=== PATIENT | female | born 1980 | race Caucasian/White ===

== ENCOUNTER 2016-10-02 03:54 | Inpatient (IN) | payer OTHER ==
--- NOTE | ~2016-10-02 | EKG ---
PATIENT: TOMASZ GRUBER UNIT #: [id number] Ventricular Rate: 93 BPM Atrial Rate: 93 BPM P-R Interval: 172 ms QRS Duration: 102 ms Q-T Interval: 378 ms QTC Calculation(Bezet): 469 ms P [place]: 33 degrees Calculated R [place]: 73 degrees Calculated T [place]: 44 degrees Diagnosis Line: Normal sinus rhythm Diagnosis Line: Minimal voltage criteria for LVH, may be normal Diagnosis Line: variant Diagnosis Line: Borderline ECG Diagnosis Line: No previous ECGs available Diagnosis Line: Confirmed by ELINA MANCINI MD ([id number]) on Diagnosis Line: 10/03/2016 12:05:28 AM INTERPRETING MD: LIVE BRISCOE
--- NOTE | ~2016-10-02 | HP ---
Unit #: [id number] #: [id number] Patient: TOMASZ GRUBER [id number] [address] [place], [place] [address] [id number] I MR#: [id number] NAME: TOMASZ GRUBER ROOM: 91244 Age: 36 Sex: F Admission Date: 10/02/2016 : 1980 Attending Physician: Adonis Albright M.D. Primary Care Physician: Damian Choe M.D. HISTORY AND PHYSICAL REASON FOR ADMISSION Drug overdose. HISTORY OF PRESENT ILLNESS The patient is a 36-year-old female who states that she has been fairly sober from any sort of IV drugs and/or alcohol for approximately two years. She recently moved back to [place] from [place]. She met her sister as well as mother who are both heroin addicts. Yesterday, she said that she snorted one line of heroin. After that, she does not recall any further events. Per report, apparently she became unconscious, continued to have normal respirations and/or pulse. EMS services were called by patient's family. The patient was brought to the hospital for further evaluation. Initial temperature was 92.4, pulse 84, blood pressure 99/51. She was given normal saline, Narcan x2, initiated on sepsis protocol, given vancomycin and cefepime as well as tobramycin. As I am evaluating her, she is currently awake, alert, and oriented x3. She states that she made a mistake by snorting the one line. She also tells me that she has been relatively sober for the past two years. She tells me that she has not used any IV drugs in the past two years and that previously she did. PAST MEDICAL HISTORY 1. Substance abuse. 2. Tobacco abuse. 3. Osteoarthritis history. PAST SURGICAL HISTORY Hysterectomy. HOME MEDICATIONS None. ALLERGIES Penicillin. FAMILY HISTORY Reviewed and noncontributory, nonpertinent. SOCIAL HISTORY Positive heroin/substance abuse. Positive tobacco use. The patient denies alcohol use. REVIEW OF SYSTEMS Unit #: [id number] #: [id number] Patient: TOMASZ GRUBER Please see HPI. A 12-point otherwise negative except for those positive and noted in the HPI. PHYSICAL EXAMINATION VITAL SIGNS: Temperature on admission 92.4, pulse 84, respiratory rate 16, blood pressure 99/51. GENERAL APPEARANCE: The patient is a 36-year-old female sitting up, drowsy but having no acute distress. HEAD: Atraumatic, normocephalic. EARS: Tympanic membranes did not reveal any erythema or injection. NECK: Supple. CARDIOVASCULAR: S1, S2 without murmur. RESPIRATORY: Clear. Prolonged expiration noted. GASTROINTESTINAL/ABDOMEN: Nontender, nondistended. EXTREMITIES: Lower extremities have no evidence of any lower extremity or calf tenderness. SKIN: Does reveal mottled, cool appearance of the skin, especially on lower extremities. NEUROLOGIC: The patient is A and O x3. PSYCHIATRIC: Patient demonstrates normal mood and affect. DIAGNOSTIC STUDIES LABORATORY: Lactic acid on admission 5. Urine tox screen performed and positive for cocaine, amphetamines, marijuana, and opiates. CBC shows a white count of 17.9, hemoglobin 14.7. INITIAL ADMISSION DIAGNOSES 1. Polysubstance drug overdose. 2. Sepsis on admission. 3. Hypothermia. 4. Leukocytosis. 5. Ongoing tobacco abuse. PLAN 1. Admission telemetry floor. 2. IV fluids. 3. Sepsis protocol to continue. 4. Blood cultures pending. 5. Continue vancomycin, cefepime for now. 6. Discontinue tobramycin as clinical suspicion for pneumonia is low, but will await final blood cultures. 7. Follow routine laboratory studies. 8. Dr. Irby to see from psychiatry services. Patient states that she will no longer use IV drugs and/or snort any further cocaine. I did have a lengthy discussion with her in regards to the overall risk of using polysubstance abuse. She expressed understanding and agreement. Dictated by Peter Phelps/xiomara TD: 10/02/2016 11:45 JOB #: [id number] Unit #: [id number] #: [id number] Patient: TOMASZ GRUBER HISTORY AND PHYSICAL X Adonis Albright MD HISTORY AND PHYSICAL
--- NOTE | ~2016-10-02 | CO ---
Unit #: [id number] #: [id number] Patient: DORCAS GRUBER [id number] [facility] [address] [place], [place] [address] [id number] I MR#: [id number] NAME: DORCAS GRUBER. ROOM: 341 Age: 36 Sex: F Admission Date: 10/02/2016 : 1980 Attending Physician: Adonis Albright M.D. Primary Care Physician: Damian Choe M.D. Consultation Date: 10/03/2016 CONSULTATION REPORT REASON FOR CONSULTATION Overdose and heroin abuse. HISTORY OF PRESENT ILLNESS Ms. Dorcas Gruber is a 36-year-old white female, seen in 3A in room 341, bed 1 at [facility] on 10/03/2016. The patient reported that she was using alcohol and IV opioid. Reported that she accidentally overdosed. The patient denied any suicidal or homicidal ideation. Denied any psychotic symptom. The patient reported that she is in treatment and will go back and receive treatment in [facility]. The patient denied any prior history. PAST PSYCHIATRIC HISTORY Unremarkable for any history of any previous treatment, but history of substance abuse. MEDICAL HISTORY Unremarkable except for recent accidental overdose. MEDICATION HISTORY Please refer to MAR. FAMILY HISTORY AND SOCIAL HISTORY The patient reports good support. No history of any abuse, but history of substance abuse as mentioned above. REVIEW OF SYSTEMS Complete review of systems is unremarkable. MENTAL STATUS EXAMINATION General appearance, the patient dressed casually. Attention span and concentration, fair. Speech, regular rate. Oriented in time, place, and person. Mood and affect were sad and dysphoric. Thought process, coherent. Thought content, the patient denied any thoughts of harming self or others or any psychotic symptom. Recent and remote memory, fair. Language; able to name object, repeat phrases. Fund of knowledge, fair. Insight and judgment, fair to slightly impaired. DIAGNOSES Psychiatric: 1. Opioid use disorder, severe, F11.20. 2. Mood disorder, not otherwise specified, F32.9. Secondary diagnosis: Deferred. Unit #: [id number] #: [id number] Patient: DORCAS GRUBER Medical diagnosis: Please see H and P. Stressors: Psychosocial stressors. ASSESSMENT/PLAN 1. Supportive psychotherapy and psychoeducation provided to the patient. 2. Advised the patient to follow up in rehab program. The patient was also given information about [facility] program and telephone number, crisis line #[phone]. Dictated by... James Irby M.D. JOSE L/belinda TD: 10/03/2016 22:19 JOB #: [id number] CONSULTATION REPORT X James Irby MD X CONSULTATION REPORT
--- NOTE | ~2016-10-02 | CR72 ---
[facility] A Service of [facility] & [facility] RADIOLOGY TEXT RESULTS PATIENT: TOMASZ GRUBER LOCATION: [facility] 341- : [birth year] UNIT #: [id number] AGE: [address]: Adonis Albright MD SEX: F ORDER DR: [id number] [facility] [address] [place], [place] [address] [id number] I MR#: [id number] Acc #: [id number] NAME: TOMASZ GRUBER : 1980 SEX: F STUDY DATE/TIME: 10/02/2016 3:46 [facility] STUDY DESCRIPTION: CR Chest Single View Portable Attending Physician: Adonis Albright M.D. Ordering Physician: Mylene Horan M.D. Primary Care Physician: Damian Choe M.D. MEDICAL IMAGING REPORT This report is preliminary unless electronic signature is present EXAM AP portable chest, 10/02/2016, 03:46. HISTORY Shortness of breath and weakness today. Heroin overdose. COMPARISON STUDIES PA and lateral chest, 08/23/2016. FINDINGS No acute airspace disease. Normal heart size. No pleural effusion or pneumothorax is identified. No acute osseous abnormality. IMPRESSION No acute cardiopulmonary findings. Dictated by... Cheri Gonzalez M.D. THIS IS AN ELECTRONICALLY VERIFIED REPORT Cheri Gonzalez M.D. at 10/02/2016 9:57 PM LATHA/cori TD: 10/02/2016 12:50 JOB #: [id number] MEDICAL IMAGING REPORT COPY
--- NOTE | ~2016-10-02 | CT57 ---
[facility] A Service of [facility] & [facility] RADIOLOGY TEXT RESULTS PATIENT: TOMASZ GRUBER LOCATION: [facility] 341-01 : [birth year] UNIT #: [id number] AGE: [address]: Adonis Albright MD SEX: F ORDER DR: [id number] [facility] [address] [place], [place] [address] [id number] I MR#: [id number] Acc #: [id number] NAME: TOMASZ GRUBER. : 1980 SEX: F STUDY DATE/TIME: 10/02/2016 10:20 [facility]: [facility] STUDY DESCRIPTION: CT Chest Wo Cont Attending Physician: Adonis Albright M.D. Ordering Physician: Adonis Albright M.D. Primary Care Physician: Damian Choe M.D. MEDICAL IMAGING REPORT This report is preliminary unless electronic signature is present EXAM CT chest without contrast INDICATIONS 36-year-old female with history of respiratory distress today, heroin overdose, possible aspiration pneumonia and history of MRSA. TECHNIQUE CT scan of the chest was performed without contrast. Coronal and sagittal reformatted images were obtained. This CT exam was performed with one or more of the following radiation dose reduction techniques: Automatic exposure control, adjustment of mA and/or kV according to patient size, and iterative reconstruction. No comparisons. FINDINGS There is patchy consolidation bilaterally in the lungs most consistent with pneumonia. This is most extensive within the left lower lobe. This is also present but to a lesser extent within the right lower lobe, right middle lobe and lingula. There are some mildly prominent mediastinal lymph nodes, which are likely reactive given the findings in the lungs. There is no pleural effusion. Limited imaging of the upper abdomen is unremarkable. Bone windows are unremarkable. IMPRESSION Patchy consolidations in both lungs as described above. Findings are greatest in the left lower lobe. Findings are consistent with pneumonia. Follow up to clearing is suggested. Dictated by... Tarun Evans M.D. THIS IS AN ELECTRONICALLY VERIFIED REPORT Tarun Evans M.D. at 10/03/2016 7:41 AM [facility] A Service of [facility] & [facility] RADIOLOGY TEXT RESULTS PATIENT: TOMASZ GRUBER LOCATION: [facility] 341-01 : [birth year] UNIT #: [id number] AGE: [address]: Adonis Albright MD SEX: F ORDER DR: David TD: 10/02/2016 17:30 JOB #: [id number] MEDICAL IMAGING REPORT COPY
--- NOTE | ~2016-10-02 | DS ---
Unit #: [id number] #: [id number] Patient: TOMASZ GRUBER [id number] [address] [place], [place] [address] [id number] I MR#: [id number] NAME: TOMASZ GRUBER. ROOM: 341 Age: 36 Sex: F Admission Date: 10/02/2016 : 1980 Discharge Date: 10/03/2016 Attending Physician: Adonis Albright M.D. Primary Care Physician: Damian Choe M.D. DISCHARGE SUMMARY DISCHARGE DIAGNOSES 1. Polysubstance abuse with overdose. 2. Community-acquired pneumonia, questionable aspiration, was treated with vancomycin and Maxipime. 3. Sepsis present on admission with a lactic acid of 5 and repeat of 1 secondary to the pneumonia, resolved at this time. 4. Hypothermia, blood culture with no growth at this time. 5. Resolved leukocytosis. 6. Ongoing tobacco usage. PROCEDURES None. CONSULTANTS None. DIAGNOSTIC STUDIES LABORATORY: BNP with glucose 87, BUN 7, creatinine 0.6, sodium 137, potassium 3.6, chloride 105, CO2 of 26, calcium 8.1, magnesium 1.8, total protein 5.1, albumin 3, total bilirubin 0.6, AST 18, ALT 21, and alkaline phosphatase 38. CBC with WBC of 6.8, RBC 3.72, hemoglobin 12.1, hematocrit 34.9, MCV 93.8, MCH 32.4, MCHC 34.6, RDW 12.5, platelets 120,000, and MPV is 9.6. IMAGING: Chest x-ray on October 02, 2016, impression: No acute cardiopulmonary findings. CT without contrast on October 02, 2016, impression: Patchy consolidations in both lungs as described above. Findings are greatest in the left lower lobe. Findings are consistent with pneumonia. Follow up to clearing is suggested. HOSPITAL COURSE The patient is a 36-year-old female who stated that she had been fairly sober for the past 27 months from any sort of IV drug and/or alcohol. She had recently moved back to [place] from [place]. She met her sister, as well as her mom, who are both heroin addicts, the day prior to admission where she states she only used one line of heroin and she had snorted. She does not recall anything following this. She became unconscious, and EMS was called by her family. She was brought to the hospital for further evaluation. Initial temperature was 92.4, pulse 84, and blood pressure was 99/51. She was given normal saline and Narcan x2 and initiated on sepsis protocol with a lactic acid of 5 with much IV fluid hydration. The following day patient is alert, awake, and oriented. She denies any Unit #: [id number] #: [id number] Patient: TOMASZ GRUBER upper respiratory symptoms at this time and tells me that she plans to go home and live with her uncle. She does not want to go to a substance abuse facility. She tells me that she was able to get clean, and she will be living with her uncle who does not have any substance abuse and will be able to have much support from him. Therefore, she does not want to go to any inpatient facility. Dr. Irby was consulted, but at this time due to patient refusing for any needs and refusing to go to the facility, we will be discharging patient home as she wishes. I am sending her with Levaquin due to her being unconscious for an unknown period of time, questionable if she had actually aspirated during this time. DISCHARGE CONDITION Stable. DISCHARGE FOLLOWUP I have arranged for followup with [facility] on October 13 at 10 (1) where she can get a repeat chest x-ray to ensure clearance of the pneumonia. DISCHARGE MEDICATIONS Resume home medications of Symbicort 160 mcg 2 puffs inhaled daily, Dulera 1 puff inhaled daily, and Levaquin 500 mg orally daily for the next five days. Dictated by... Ashlie Ruggiero PA-C for Peter Phelps TD: 10/05/2016 18:16 JOB #: [id number] DISCHARGE SUMMARY X X DISCHARGE SUMMARY
[~2016-10-02 03:54] MED LIST: CLEOCIN150 M2 PO; FLEXERIL10 MG PO; IBUPROFEN800 MG PO; NO MEDICATIONS; NORCO1 TAB 10/3 PO; VOLTAREN50 MG PO
[2016-10-02 04:17] LABS: URINE SOURCE CLEAN CATCH
[2016-10-02 04:30] LABS: BASOPHIL% 0.2 % (0-2.5); EOSINOPHIL% 0.1 % (0.0-7.0); HEMATOCRIT 43.3 % (35.0-45.0); HEMOGLOBIN 14.7 gm/dL (12.0-16.0); LYMPHOCYTE# 0.9 X10e3 (1.0-3.5); LYMPHOCYTE% 5.1 % (17.0-45.0); MEAN CELL VOLUME 94.4 FL (83-96); MEAN CORPUSCULAR HEMOGLOBIN 32.2 PG (28-34); MEAN CORPUSCULAR HGB CONC 34.1 g/dL (30-36); MEAN PLATELET VOLUME 9.7 FL (6.5-11.5); MONOCYTE# 0.5 X10e3 (0-1.0); NEUTROPHIL# 16.4 X10e3 (1.5-7.1); NEUTROPHIL% 91.6 % (40-75); PLATELET COUNT 161 X10e3 (140-420); RED BLOOD COUNT 4.58 X10e (3.90-5.30); RED CELL DISTRIBUTION WIDTH 12.7 % (11.0-15.5); WHITE BLOOD COUNT 17.9 X10e3 (4.0-10.5)
[2016-10-02 04:33] LABS: DIFF IND YES
[2016-10-02 04:33] LABS: URINE APPEARANCE CLEAR; URINE BILIRUBIN NEG (NEG); URINE BLOOD NEG (NEG); URINE COLOR YELLOW; URINE GLUCOSE >1000 MG/DL (NEG); URINE KETONE NEG (NEG); URINE LEUKOCYTE ESTERASE NEG (NEG); URINE NITRATE NEG (NEG); URINE PH 6.5 (5-8); URINE PROTEIN 1+ (NEG); URINE SPECIFIC GRAVITY 1.017 (1.003-1.035); URINE UROBILINOGEN 0.2 MG/DL (NEG)
[2016-10-02 04:37] LABS: CULTURE INDICATED? YES; URBCS1 AUWI 0-2 /[HPF] (0-2); URINE BACTERIA AUWI NEG (NEGATIVE); URINE SQUAMOUS EPITHELIAL CELL FEW /[HPF]
[2016-10-02 04:41] LABS: POC - CKMB 1.4 ng/mL (0.0-7.9); POC - TROPONIN <0.05 ng/mL (<=0.05)
[2016-10-02 04:49] LABS: ALBUMIN SERUM 4.4 g/dL (3.5-5.0); BILIRUBIN, DIRECT 0.1 mg/dL (0.0-0.2); BILIRUBIN,TOTAL 0.1 mg/dL (0.2-2.0); BUN/CREATININE RATIO 8.18; CALCIUM SERUM 8.8 mg/dL (8.4-10.2); CREATININE SERUM 1.1 mg/dL (0.6-1.4); GLOM FILT RATE Estimated 59.1 mL/min (>60); POTASSIUM 3.5 mmol/L (3.5-5.1); PROTEIN TOTAL SERUM 7.2 g/dL (6.0-8.3)
[2016-10-02 04:53] LABS: AMPHETAMINE POS (NEG); BARBITURATES NEG (NEG); BENZODIAZEPINES NEG (NEG); COCAINE POS (NEG); MARIJUANA POS (NEG); OPIATES POS (NEG); TRICYCLIC ANTIDEPRESSANTS NEG (NEG); U METHADONE NEG (NEG)
[2016-10-02 05:00] LABS: PLATELET ESTIMATE NORMAL (NORMAL)
[2016-10-02] MEDS ORDERED: SYMBICORT INH (10:23)
[2016-10-02] MEDS ORDERED: DULERA 200 MCG/13 GM INH (10:25)
[2016-10-03 07:38] LABS: BASOPHIL% 0.4 % (0-2.5); EOSINOPHIL# 0.1 X10e3 (0-0.7); EOSINOPHIL% 1.5 % (0.0-7.0); HEMATOCRIT 34.9 % (35.0-45.0); LYMPHOCYTE# 2.2 X10e3 (1.0-3.5); LYMPHOCYTE% 32.8 % (17.0-45.0); MEAN CELL VOLUME 93.8 FL (83-96); MEAN CORPUSCULAR HEMOGLOBIN 32.4 PG (28-34); MEAN CORPUSCULAR HGB CONC 34.6 g/dL (30-36); MEAN PLATELET VOLUME 9.6 FL (6.5-11.5); MONOCYTE# 0.3 X10e3 (0-1.0); NEUTROPHIL# 4.1 X10e3 (1.5-7.1); NEUTROPHIL% 60.3 % (40-75); PLATELET COUNT 120 X10e3 (140-420); RED BLOOD COUNT 3.72 X10e (3.90-5.30); RED CELL DISTRIBUTION WIDTH 12.5 % (11.0-15.5)
[2016-10-03 07:41] LABS: DIFF IND NO; HEMOGLOBIN 12.1 gm/dL (12.0-16.0); WHITE BLOOD COUNT 6.8 X10e3 (4.0-10.5)
[2016-10-03 08:07] LABS: ALKALINE PHOSPHATASE 38 U/L (32-92); ALT (SGPT) 21 U/L (10-40); AST (SGOT) 18 U/L (10-42); BILIRUBIN,TOTAL 0.6 mg/dL (0.2-2.0); BLOOD UREA NITROGEN 7 mg/dL (9-23); BUN/CREATININE RATIO 11.66; CALCIUM SERUM 8.1 mg/dL (8.4-10.2); CARBON DIOXIDE 26 mmol/L (22-31); CHLORIDE 105 mmol/L (100-111); CREATININE SERUM 0.6 mg/dL (0.6-1.4); GLOM FILT RATE Estimated ABOVE60 mL/min (>60); GLUCOSE FASTING 87 mg/dL (70-110); MAGNESIUM 1.8 mg/dL (1.6-3.0); POTASSIUM 3.6 mmol/L (3.5-5.1); PROTEIN TOTAL SERUM 5.1 g/dL (6.0-8.3); SODIUM 137 mmol/L (135-145)
[2016-10-03] MEDS ORDERED: LEVAQUIN PO (15:11)
== END 2016-10-03 19:37 | disposition home or self-care (01) | DRG 917 ==
LOC: CED 03:54 → CEDOF 06:38 → C3A PCU 15:04
PROVIDERS: Family Medicine; Student in an Organized Health Care Education/Training Program
DX: T40.1X1A Poisoning by heroin, accidental (unintentional), initial encounter (principal); A41.9 Sepsis, unspecified organism; J69.0 Pneumonitis due to inhalation of food and vomit; F11.20 Opioid dependence, uncomplicated; T68.XXXA Hypothermia, initial encounter; D72.829 Elevated white blood cell count, unspecified; F17.210 Nicotine dependence, cigarettes, uncomplicated; F39 Unspecified mood [affective] disorder
CPT/HCPCS: 36415; 71010; 71250; 80048; 80053; 80076; 80307; 81003; 82553; 83036; 83605; 83735; 84443; 84484; 85025; 87040; 87086; 93005; 96361; 96374; 96375; 99285; J0692; J2405; J3260; J3370; J3475

== ENCOUNTER 2017-02-23 11:17 | Emergency (ER) | payer OTHER ==
[~2017-02-23] VITALS: Ht 162.6 cm; Wt 59.0 kg
--- NOTE | ~2017-02-23 | CR72 ---
[facility] A Service of [facility] & [facility] RADIOLOGY TEXT RESULTS PATIENT: TOMASZ GRUBER LOCATION: [facility] : [birth year] UNIT #: [id number] AGE: [address]: Dyu York MD SEX: F ORDER DR: [id number] [facility] [address] [place], [place] [address] [id number] MR#: [id number] Acc #: [id number] NAME: TOMASZ GRUBER : 1980 SEX: F STUDY DATE/TIME: 02/23/2017 12:01 UNIT: [facility] ROOM: STUDY DESCRIPTION: CR Chest Single View Portable Attending Physician: Duy York M.D. Referring Physician: Damian Choe M.D. Ordering Physician: Duy York M.D. Primary Care Physician: Damian Choe M.D. MEDICAL IMAGING REPORT This report is preliminary unless electronic signature is present EXAM Portable chest. HISTORY Shortness of air and chest pain for 1 day. COMPARISON 10/02/2016 FINDINGS A portable view of the chest was obtained. The heart size and vascularity are normal and the lungs are clear. The bones are unremarkable. IMPRESSION No active disease. Dictated by... Lizandro Bhagat M.D. THIS IS AN ELECTRONICALLY VERIFIED REPORT Lizandro Bhagat M.D. at 02/23/2017 3:31 PM YOLANDA/austen TD: 02/23/2017 14:24 JOB #: [id number] MEDICAL IMAGING REPORT Page 1 of 1 COPY
--- NOTE | ~2017-02-23 | EKG ---
PATIENT: TOMASZ GRUBER UNIT #: [id number] Ventricular Rate: 86 BPM Atrial Rate: 86 BPM P-R Interval: 166 ms QRS Duration: 98 ms Q-T Interval: 364 ms QTC Calculation(Bezet): 435 ms P [place]: 66 degrees Calculated R [place]: 79 degrees Calculated T [place]: 48 degrees Diagnosis Line: Normal sinus rhythm Diagnosis Line: Moderate voltage criteria for LVH, may be normal Diagnosis Line: variant Diagnosis Line: Nonspecific ST and T wave abnormality Diagnosis Line: Abnormal ECG Diagnosis Line: When compared with ECG of 02-OCT-2016 03:18, Diagnosis Line: Nonspecific T wave abnormality now evident in Diagnosis Line: Lateral leads Diagnosis Line: Confirmed by MAIRA BRISCOE, RAND ([id number]) on 02/25/2017 Diagnosis Line: 8:18:33 AM INTERPRETING MD: MAIRA BRISCOE
[~2017-02-23 11:17] MED LIST changes: +DULERA 200 MCG/13 GM INH; +LEVAQUIN PO; +SYMBICORT INH
[2017-02-23 11:53] LABS: BASOPHIL% 0.3 % (0-2.5); EOSINOPHIL# 0.1 X10e3 (0-0.7); EOSINOPHIL% 0.7 % (0.0-7.0); HEMATOCRIT 44.1 % (35.0-45.0); LYMPHOCYTE# 1.6 X10e3 (1.0-3.5); LYMPHOCYTE% 15.6 % (17.0-45.0); MEAN CELL VOLUME 96.2 FL (83-96); MEAN CORPUSCULAR HEMOGLOBIN 32.7 PG (28-34); MEAN CORPUSCULAR HGB CONC 33.9 g/dL (30-36); MONOCYTE# 0.3 X10e3 (0-1.0); MONOCYTE% 2.8 % (3.0-12.0); NEUTROPHIL# 8.4 X10e3 (1.5-7.1); NEUTROPHIL% 80.6 % (40-75); PLATELET COUNT 158 X10e3 (140-420); RED BLOOD COUNT 4.58 X10e (3.90-5.30); RED CELL DISTRIBUTION WIDTH 12.9 % (11.0-15.5); WHITE BLOOD COUNT 10.5 X10e3 (4.0-10.5)
[2017-02-23 11:54] LABS: DIFF IND NO
[2017-02-23 12:02] LABS: POC - CKMB 1.3 ng/mL (0.0-7.9); POC - TROPONIN <0.05 ng/mL (<=0.05)
[2017-02-23 12:23] LABS: ALBUMIN SERUM 4.1 g/dL (3.5-5.0); BILIRUBIN, DIRECT 0.1 mg/dL (0.0-0.2); BILIRUBIN,INDIRECT 0.4 mg/dL (0.0-0.9); BILIRUBIN,TOTAL 0.5 mg/dL (0.2-2.0); BUN/CREATININE RATIO 7.77; CALCIUM SERUM 8.9 mg/dL (8.4-10.2); CREATININE SERUM 0.9 mg/dL (0.6-1.4); GLOM FILT RATE Estimated 81.2 mL/min (>60); POTASSIUM 3.3 mmol/L (3.5-5.1); PROTEIN TOTAL SERUM 6.8 g/dL (6.0-8.3)
== END 2017-02-23 15:42 | disposition home or self-care (01) ==
LOC: CED 11:17
PROVIDERS: Emergency Medicine
DX: R09.1 Pleurisy (principal); F17.200 Nicotine dependence, unspecified, uncomplicated; Z90.710 Acquired absence of both cervix and uterus; Z88.0 Allergy status to penicillin; J45.909 Unspecified asthma, uncomplicated
CPT/HCPCS: 36415; 71010; 80048; 80076; 82553; 84484; 85025; 85379; 93005; 94640; 96361; 96374; 96375; 99285; J1885; J2270; J2405; J2930